=== PATIENT | female | born 1995 | race Caucasian/White ===

== ENCOUNTER 2023-01-27 14:45 | Emergency (ER) | payer BC ==
[~2023-01-27] VITALS: Ht 157.5 cm; Wt 50.8 kg
[2023-01-27 14:59] VITALS: BP 97/62; PULSE 95; RESP 20; TEMP 97.4; O2SAT 98
[2023-01-27] MEDS ORDERED: ACET-2619 PO (15:50)
[2023-01-27] MEDS ORDERED: FLONAS NS (15:50)
[2023-01-27] MEDS ORDERED: IBUP-2213 PO (15:50)
[2023-01-27 16:04] VITALS: BP 97/62; PULSE 95; RESP 20; TEMP 97.4; O2SAT 98
== END 2023-01-27 15:57 | disposition home or self-care (01) ==
LOC: MED 14:45
DX: H74.03 Tympanosclerosis, bilateral (principal); Z79.899 Other long term (current) drug therapy; Z79.1 Long term (current) use of non-steroidal anti-inflammatories (NSAID)
CPT/HCPCS: 99283